=== PATIENT | female | born 1975 ===

== ENCOUNTER 2017-05-11 13:56 | Emergency (ER) | payer SELFPAY ==
[2017-05-11 14:23] VITALS: BP 118/72; PULSE 101; RESP 16; TEMP 98.8; O2SAT 99
--- NOTE | 2017-05-11 14:44 | ED PDOC ---
HPI: CCC, URI, Sore Throat Time Seen by Provider: 05/11/17 14:34 Chief Complaint (Nursing): Cough, Cold, Congestion Chief Complaint (Provider): Cough History Per: Patient History/Exam Limitations: no limitations Have you had recent travel within the past 21 days to any of the following countries: [place], [place], [place] or [place]?: No Onset/Duration Of Symptoms: Days (7) Current Symptoms Are (Timing): Still Present Associated Symptoms: Cough. denies: Fever, Chills, Sore Throat, Neck Pain, Sinus Drainage, Myalgias, Nasal Congestion, Nausea, Vomiting, Diarrhea Severity: Mild Additional History Per: Patient Additional Complaint(s): 41 y/o female with no medical problems complaining of cough for the last 2-3 weeks. Currently non-productive but has been productive in the past. She denies any shortness of breath, fever, ear pain, throat pain, or other complaint. Pt has not taken any medications for symptoms at home. Past Medical History Reviewed: Historical Data, Nursing Documentation, Vital Signs Vital Signs: Last Vital Signs Temp 98.8 F 05/11/17 14:20 Pulse 101 H 05/11/17 14:20 Resp 16 05/11/17 14:20 BP 118/72 05/11/17 14:20 Pulse Ox 99 05/11/17 14:53 - Medical History PMH: No Chronic Diseases - Surgical History Surgical History: No Surg Hx - Family History Family History: States: Unknown Family Hx - Living Arrangements Living Arrangements: With Family - Social History Current smoker - smoking cessation education provided: No - Home Medications Home Medications: Ambulatory Orders Medication Instructions Recorded Guaifen/Phenyleph/Acetaminophn 1 tab PO BID #14 tab 05/11/17 [Mucinex Fast-Max Cold & Sinus 325 mg-200 mg-5] Promethazine HCl/Codeine 10 ml PO Q8H PRN #150 ml 05/11/17 [Prometh-Codein 6.25-10 mg/5 ml] - Allergies Allergies/Adverse Reactions: Allergies Allergy/AdvReac Type Severity Reaction Status Date / Time No Known Allergies Allergy Verified 05/11/17 14:20 Review of Systems ROS Statement: Except As Marked, All Systems Reviewed And Found Negative Constitutional: Negative for: Fever ENT: Negative for: Ear Pain, Nose Congestion, Throat Pain Respiratory: Positive for: Cough Genitourinary Female: Negative for: Dysuria Physical Exam - Reviewed Nursing Documentation Reviewed: Yes Vital Signs Reviewed: Yes - Physical Exam Appears: Positive for: Well, Non-toxic Head Exam: Positive for: ATRAUMATIC, NORMAL INSPECTION, NORMOCEPHALIC Skin: Positive for: Normal Color, Warm, Dry. Negative for: Rash Eye Exam: Positive for: Normal appearance ENT: Positive for: Normal ENT Inspection. Negative for: Pharyngeal Erythema, Tonsillar Swelling Neck: Positive for: Normal, Supple Cardiovascular/Chest: Positive for: Regular Rate, Rhythm Respiratory: Positive for: Normal Breath Sounds. Negative for: Rales, Rhonchi, Stridor, Wheezing, Respiratory Distress Extremity: Positive for: Normal ROM Neurologic/Psych: Positive for: Alert, Oriented - ECG O2 Sat by Pulse Oximetry: 99 Medical Decision Making Medical Decision Making: Time: 14:44 Initial impression: Cough Patient is afebrile in the department. She was given and instructed to follow up with her PMD in the next few days. All questions answered. Patient discharged in stable condition. ~ Scribe Attestation: Documented by~Monique Singh, acting as a scribe for NISHA Elizabeth. Provider Scribe Attestation: All medical record entries made by the Scribe were at my direction and personally dictated by me. I have reviewed the chart and agree that the record accurately reflects my personal performance of the history, physical exam, medical decision making, and the department course for this patient. I have also personally directed, reviewed, and agree with the discharge instructions and disposition. Disposition - Clinical Impression Clinical Impression: Cough - Patient ED Disposition Is Patient to be Admitted: No Doctor Will See Patient In The: Office Counseled Patient/Family Regarding: Diagnosis, Need For Followup, Rx Given - Disposition Disposition: Routine/Home Disposition Time: 14:53 Condition: STABLE Prescriptions: Guaifen/Phenyleph/Acetaminophn [Mucinex Fast-Max Cold & Sinus 325 mg-200 mg-5] 1 tab PO BID #14 tab Promethazine HCl/Codeine [Prometh-Codein 6.25-10 mg/5 ml] 10 ml PO Q8H PRN #150 ml PRN Reason: Cough Instructions: Viral Syndrome (ED) Forms: [employer] (Tanzanian) Print Language: ROMANIAN
== END 2017-05-11 15:52 | disposition home or self-care (01) ==
LOC: H.ER 13:56
DX: R05 Cough (principal)